=== PATIENT | male | born 1985 | race Caucasian/White ===

== ENCOUNTER 2017-05-18 15:35 | Emergency (ER) | payer OTHER ==
[2017-05-18] MEDS ORDERED: Penicillin G Benzathine 2.4MU* 2,400,000 UNITS/4 ML SYR IM ONE (17:44)
--- NOTE | 2017-05-18 17:51 | UC ---
General HPI - HPI Summary HPI Summary: patient reports being notified by health department of exposure to syphillis. The exposure would have been about 2-3 months ago, he does remember an unusual lesion around the anus soon after the exposure. does have some overall malaise and there is a rash that has developed over the body. - History of Current Complaint Chief Complaint: UCSTDScreening Stated Complaint: PERSONAL Time Seen by Provider: 05/18/17 17:28 Hx Obtained From: Patient Onset/Duration: Sudden Onset, Still Present Timing: Constant Onset Severity: Mild Current Severity: Mild - Allergy/Home Medications Allergies/Adverse Reactions: Allergies Allergy/AdvReac Type Severity Reaction Status Date / Time No Known Allergies Allergy Verified 05/18/17 17:25 Home Medications: Home Medications Acetaminophen [Acetaminophen Extra Stren] 1,000 mg PO DAILY 05/18/17 [History Confirmed 05/18/17] PMH/Surg Hx/FS Hx/Imm Hx Previously Healthy: Yes - Surgical History Surgical History: None - Family History Known Family History: Positive: Hypertension - Social History Alcohol Use: Occasionally Substance Use Type: None Smoking Status (MU): Heavy Every Day Tobacco Smoker Review of Systems Constitutional: Fatigue Skin: Rash Eyes: Negative ENT: Negative Respiratory: Negative Cardiovascular: Negative Gastrointestinal: Negative Genitourinary: Negative Motor: Negative Neurovascular: Negative Musculoskeletal: Myalgia Neurological: Negative Psychological: Negative Is Patient Immunocompromised?: No All Other Systems Reviewed And Are Negative: Yes Physical Exam Triage Information Reviewed: Yes Appearance: Well-Appearing, No Pain Distress, Well-Nourished Vital Signs: Initial Vital Signs Temp 98.7 F 05/18/17 17:20 Pulse 86 05/18/17 17:20 Resp 16 05/18/17 17:20 BP 126/89 05/18/17 17:20 Pulse Ox 99 05/18/17 17:20 Vital Signs Reviewed: Yes Eye Exam: Normal ENT: Positive: Pharyngeal erythema, TMs normal, TM bulging Dental Exam: Normal Neck exam: Normal Neck: Positive: Supple, Nontender, No Lymphadenopathy Respiratory Exam: Normal Respiratory: Positive: Chest non-tender, Lungs clear, Normal breath sounds Cardiovascular Exam: Normal Cardiovascular: Positive: RRR, No Murmur, Pulses Normal Abdomen Description: Positive: Nontender, No Organomegaly Bowel Sounds: Positive: Present Musculoskeletal Exam: Normal Neurological Exam: Normal Psychological Exam: Normal Skin: Positive: rashes - small red bumbed rash on chest Course/Dx - Course Course Of Treatment: hx obtained, exam performed ,meds reviewed, bloodwork performed, treated with Bicillin 2.4, patient has appointment tomorrow in [facility] for PRep treatment - Differential Dx - Multi-Symptom Provider Diagnoses: syphillis exposure. rash. malaise Discharge - Discharge Plan Condition: Stable Disposition: HOME Patient Education Materials: Syphilis (ED) Additional Instructions: 1. Today Syphilis IGg with reflex RPR was obtained 2. You were given one dose of Penicillin G benthazine 2.4 million units 3. Follow up with your appointment at [facility].
[2017-05-20 14:30] LABS: Syphilis Index 20.5 Index
== END 2017-05-18 18:14 | disposition home or self-care (01) ==
LOC: UCCORT 15:35
DX: R21 Rash and other nonspecific skin eruption (principal); R53.81 Other malaise; Z20.2 Contact with and (suspected) exposure to infections with a predominantly sexual mode of transmission; F17.210 Nicotine dependence, cigarettes, uncomplicated
CPT/HCPCS: 36415; 86592; 96372; 99201; G0463

== ENCOUNTER 2017-11-26 18:40 | Emergency (ER) | payer OTHER, MEDICAID ==
[2017-11-26 20:19] VITALS: BP 127/77
[2017-11-26] MEDS ORDERED: Penicillin G Benzathine 2.4MU* 2,400,000 UNITS/4 ML SYR IM ONE ×2 (21:06→21:19)
[2017-11-26] MEDS ORDERED: Azithromycin TAB* 250 MG PO ONE (21:06)
--- NOTE | 2017-11-26 21:12 | UC ---
Complaint Male HPI - HPI Summary HPI Summary: pt states he was exposed to syphilis 06/17 and tested positive. he was treated with a pcn shot. he has been having serial titers and is nearly back to zero. last titer was 09/18. today he was advised of another exposure that occured in october of 2017. in additon, pt notes "urethritis" symptoms for a week, "burning with urination". denies having any lesions or discharge. he is currently in a PREP program through [facility] as well. he is feeling fine otherwise. - History of Current Complaint Hx Obtained From: Patient Pain Intensity: 0 Associated Signs And Symptoms: Positive: Dysuria. Negative: Fever Prior STD Hx: syphilis, urethritis <Kerri Gates - Last Filed: 11/26/17 21:58> <Queta Rosario - Last Filed: 11/27/17 06:51> - History of Current Complaint Chief Complaint: UCGeneralIllness Stated Complaint: PERSONAL Time Seen by Provider: 11/26/17 20:41 - Allergies/Home Medications Allergies/Adverse Reactions: Allergies Allergy/AdvReac Type Severity Reaction Status Date / Time doxycycline Allergy Intermediate Hives Verified 11/26/17 20:19 Home Medications: Home Medications Citalopram TAB* [CeleXA TAB*] 10 mg PO DAILY 11/26/17 [History Confirmed ] Multivitamins/Minerals TAB* [Theragran/minerals TAB*] 1 tab PO DAILY 11/26/17 [ History Confirmed 11/26/17] [place]-3 Fatty Acids (Nf) [Fish Oil (NF)] 1,000 mg PO DAILY 11/26/17 [History Confirmed 11/26/17] Tenofovir/Emtricitabine(*) [Truvada*] 1 tab PO DAILY 11/26/17 [History Confirmed 11/26/17] PMH/Surg Hx/FS Hx/Imm Hx - Additional Past Medical History Additional PMH: syphilis, urethritis Psychological History: Anxiety, Depression - Surgical History Surgical History: Yes Surgery Procedure, Year, and Place: colonoscopy - Family History Known Family History: Positive: Hypertension - Social History Alcohol Use: Occasionally Alcohol Amount: few days a week Substance Use Type: Marijuana Substance Use Comment - Amount & Last Used: occasional Smoking Status (MU): Light Every Day Tobacco Smoker Type: Cigarettes Amount Used/How Often: 1/2 ppd <Jeison Gatesie - Last Filed: 11/26/17 21:58> Review of Systems Constitutional: Negative Skin: Negative Eyes: Negative ENT: Negative Respiratory: Negative Cardiovascular: Negative Gastrointestinal: Negative Genitourinary: Dysuria Motor: Negative Neurovascular: Negative Musculoskeletal: Negative Neurological: Negative Psychological: Negative All Other Systems Reviewed And Are Negative: Yes <GatesKerri - Last Filed: 11/26/17 21:58> Physical Exam Triage Information Reviewed: Yes Appearance: Well-Appearing Vital Signs: Initial Vital Signs Temp 97.9 F 11/26/17 20:13 Pulse 66 11/26/17 20:13 Resp 17 11/26/17 20:13 BP 127/77 11/26/17 20:13 Pulse Ox 100 11/26/17 20:13 Vital Signs Reviewed: Yes Eyes: Positive: Conjunctiva Clear ENT: Positive: Pharynx normal, TMs normal. Negative: Nasal congestion, Nasal drainage Neck: Positive: Supple, Nontender, No Lymphadenopathy Respiratory: Positive: Lungs clear, Normal breath sounds Cardiovascular: Positive: RRR, No Murmur Abdomen Description: Positive: Nontender, No Organomegaly, Soft, Other: - No rectal lesions Bowel Sounds: Positive: Present Male Genital Exam: Positive: Normal Genitalia, Other - no urethral discharge, no lesions, no inguinal adenopathy. Musculoskeletal: Positive: ROM Intact Neurological: Positive: Alert Psychological: Positive: Age Appropriate Behavior Skin Exam: Normal Skin: Negative: rashes <KodyKerri - Last Filed: 11/26/17 21:58> Vital Signs: Initial Vital Signs Temp 97.9 F 11/26/17 20:13 Pulse 66 11/26/17 20:13 Resp 17 11/26/17 20:13 BP 127/77 11/26/17 20:13 Pulse Ox 100 11/26/17 20:13 <Queta Rosario - Last Filed: 11/27/17 06:51> Diagnostics - Laboratory Diagnostic Studies Completed/Ordered: syphilis, GC/chlamydia are pending. u/a= unremarkable. presumptive tx for chlamydia and syphilis given. additional tx for GC may be given later if indicated by testing and ongoing s/s's(pt aware). pt is on PREP. <Kerir Gates - Last Filed: 11/26/17 21:58> Complaint Male Course/Dx - Course Course Of Treatment: lab consulted on which syphilis testing to order. - Differential Dx/Diagnosis Provider Diagnoses: Urethritis. Syphilis exposure <Kerri Gates - Last Filed: 11/26/17 21:58> Discharge - Sign-Out/Discharge Documenting (check all that apply): Discharge - Billing Disposition and Condition Condition: STABLE Disposition: HOME <Kerri Gates - Last Filed: 11/26/17 21:58> - Billing Disposition and Condition Condition: STABLE Disposition: HOME <Queta Rosario - Last Filed: 11/27/17 06:51> - Discharge Plan Condition: Stable Disposition: HOME Patient Education Materials: Syphilis (ED), Nonspecific Urethritis in Men (ED) Referrals: Ellen Olvera MD [Primary Care Provider] - 5 Days Additional Instructions: FOLLOW UP WITH [facility] Attestation Statement User Type: Provider - I was available for consult. This patient was seen by the DONNA. The patient was not presented to, seen by, or examined by me. J Carlos <Queta Rosario - Last Filed: 11/27/17 06:51>
== END 2017-11-26 22:04 | disposition home or self-care (01) ==
LOC: UCCORT 18:40
DX: N34.2 Other urethritis (principal); Z20.2 Contact with and (suspected) exposure to infections with a predominantly sexual mode of transmission; F17.210 Nicotine dependence, cigarettes, uncomplicated; Z86.19 Personal history of other infectious and parasitic diseases; Z88.3 Allergy status to other anti-infective agents
CPT/HCPCS: 36415; 81003; 86592; 86780; 87491; 87591; 96372; 99212; A9270-GY; G0463; J0561

== ENCOUNTER 2018-07-08 08:59 | Emergency (ER) | payer OTHER ==
[2018-07-08 09:19] VITALS: BP 125/83
[2018-07-08] MEDS ORDERED: Penicillin G Benzathine 2.4MU* 2,400,000 UNITS/4 ML SYR IM ONE (09:40)
--- NOTE | 2018-07-08 09:48 | UC ---
Complaint Male HPI - HPI Summary HPI Summary: 33-year-old male here in clinic today day with a chief complaint that he was called by the health department that he's been exposed to somebody with syphilis. 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 He is on Truvada as a prophylactic. He is asymptomatic no rashes. Occasionally does have a little bit of dysuria but he has not now. Tells me that he's had immunizations for had been checked for hepatitis A and B. Reports that he had an urine STI screening 1-2 weeks ago with his primary care doctor which is negative. - History of Current Complaint Chief Complaint: UCGeneralIllness Stated Complaint: PERSONAL Time Seen by Provider: 07/08/18 09:14 Pain Intensity: 0 - Allergies/Home Medications Allergies/Adverse Reactions: Allergies Allergy/AdvReac Type Severity Reaction Status Date / Time doxycycline Allergy Intermediate Hives Verified 07/08/18 09:14 Home Medications: Home Medications Cholecalciferol TAB* [Vitamin D TAB*] 5,000 units PO DAILY 07/08/18 [History Confirmed 07/08/18] PMH/Surg Hx/FS Hx/Imm Hx Previously Healthy: Yes - Surgical History Surgical History: Yes Surgery Procedure, Year, and Place: colonoscopy - Family History Known Family History: Positive: Hypertension - Social History Alcohol Use: Occasionally Alcohol Amount: few days a week Substance Use Type: Marijuana Substance Use Comment - Amount & Last Used: occasional Smoking Status (MU): Light Every Day Tobacco Smoker Type: Cigarettes Amount Used/How Often: 1/2 ppd Review of Systems Constitutional: Negative Skin: Negative Eyes: Negative ENT: Negative Respiratory: Negative Cardiovascular: Negative Gastrointestinal: Negative Genitourinary: Vaginal/Penile Burning - SEE HPI Motor: Negative Neurovascular: Negative Musculoskeletal: Negative Neurological: Negative Psychological: Negative Is Patient Immunocompromised?: No All Other Systems Reviewed And Are Negative: Yes Physical Exam Triage Information Reviewed: Yes Appearance: Well-Appearing, No Pain Distress, Well-Nourished Vital Signs: Initial Vital Signs Temp 97.5 F 07/08/18 09:14 Pulse 58 07/08/18 09:14 Resp 14 07/08/18 09:14 BP 125/83 07/08/18 09:14 Pulse Ox 100 07/08/18 09:14 Vital Signs Reviewed: Yes Eye Exam: Normal ENT: Positive: Pharynx normal Neck exam: Normal Neck: Positive: Supple Respiratory Exam: Normal Respiratory: Positive: Lungs clear, Normal breath sounds, No respiratory distress Cardiovascular Exam: Normal Cardiovascular: Positive: RRR Abdominal Exam: Normal Abdomen Description: Positive: Nontender, Soft Bowel Sounds: Positive: Present Male Genital Exam: Positive: Normal Genitalia. Negative: Inguinal Tenderness, Lesions, Scrotum Tenderness (R), Scrotum Tenderness (L), Testicular Tenderness ( R), Testicular Tenderness (L), Urethral Discharge Musculoskeletal Exam: Normal Musculoskeletal: Positive: Strength Intact, ROM Intact Neurological Exam: Normal Neurological: Positive: Alert, Muscle Tone Normal Psychological Exam: Normal Psychological: Positive: Age Appropriate Behavior Skin Exam: Normal Complaint Male Course/Dx - Course Course Of Treatment: The plan is to check an RPR today and also a urine GC chlamydia. Patient's been treated with penicillin G 2.4 million units IM. At this time did not treat for gonorrhea chlamydia empirically. Those results are pending. The plan is to follow-up with primary care doctor reevaluation sooner if worse. - Differential Dx/Diagnosis Provider Diagnoses: EXPOSURE TO SYPHILIS Discharge - Sign-Out/Discharge Documenting (check all that apply): Patient Departure All imaging exams completed and their final reports reviewed: No Studies - Discharge Plan Condition: Stable Disposition: HOME Patient Education Materials: Syphilis (ED) Referrals: Lesly Thomson MD [Primary Care Provider] - Additional Instructions: FOLLOW UP WITH YOUR DOCTOR. YOU WERE GIVEN A SHOT OF PENICILLIN G 2.4 MILLION UNITS TODAY IN CLINIC. YOUR RPR AND URINE LAB RESULTS ARE PENDING. GET RECHECKED FOR ANY WORSENING OF YOUR CONDITION OR QUESTIONS OR CONCERNS. - Billing Disposition and Condition Condition: STABLE Disposition: Home
[2018-07-09 13:26] LABS: RPR Nonreactive (Nonreactive)
== END 2018-07-08 10:23 | disposition home or self-care (01) ==
LOC: UCCORT 08:59
DX: Z20.2 Contact with and (suspected) exposure to infections with a predominantly sexual mode of transmission (principal); F12.90 Cannabis use, unspecified, uncomplicated; F17.210 Nicotine dependence, cigarettes, uncomplicated; Z88.1 Allergy status to other antibiotic agents
CPT/HCPCS: 36415; 86592; 86780; 87491; 87591; 96372; 99211; G0463; J0561